=== PATIENT | male | born 1970 | race African-American/Black ===

== ENCOUNTER 2023-06-23 13:09 | Emergency (ER) | payer MEDICAID, OTHER ==
[~2023-06-23] VITALS: Ht 177.8 cm; Wt 59.0 kg
[2023-06-23] MEDS ORDERED: ATROPINE SULF 1 MG/10ml SYR IV ONE (13:10)
[2023-06-23] MEDS ORDERED: AMIODARONE HCL (50 MG/ ML) 3 ML VIAL IV ONE (13:10)
[2023-06-23] MEDS ORDERED: CALCIUM CHLOR(10%) 100MG/ML 10ML SYRINGE IV ONE (13:10)
[2023-06-23] MEDS ORDERED: DEXTROSE (50%) 50ML SYRG IV ONE (13:10)
[2023-06-23] MEDS ORDERED: EPINEPHrine HCL 1 MG/10 ML SYRG IV ONE (13:10)
[2023-06-23] MEDS ORDERED: SODIUM CHLORIDE 0.9% 1,000 ML IV ONE ×4 (13:30→14:15)
[2023-06-23] MEDS ORDERED: NOREPINEPHRINE 8 MG/250ML KIT 250 ML IV ONE (13:58)
[2023-06-23] MEDS ORDERED: MIDAZOLAM DRIP 50 mg/50mL 50 ML IV ONE (13:58)
[2023-06-23] MEDS ORDERED: SODIUM CHLORIDE 0.9% 1,000 ML IV SCH (14:00)
[2023-06-23] MEDS ORDERED: DEXTROSE 10% 1,000 ML IV SCH (14:00)
[2023-06-23] MEDS ORDERED: SODIUM BICARBONATE 50ML VIAL 50 ML in SOD CHL 0.45% 1,000 ML IV ONE (14:00)
[2023-06-23] MEDS ORDERED: MIDAZOLAM DRIP 50 mg/50mL 50 ML IV SCH (14:00)
[2023-06-23] MEDS ORDERED: EPINEPHrine HCL 250 ML IV SCH (14:00)
[2023-06-23] MEDS ORDERED: DEXTROSE 50% SYRINGE 0 ML IV ONE (14:03)
[2023-06-23 14:15] VITALS: BP 80/40; TEMP 98.1; O2SAT 98
[2023-06-23] MEDS ORDERED: NOREPINEPHRINE 8 MG/250ML KIT 250 ML IV SCH (14:15)
[2023-06-23] MEDS ORDERED: cefTRIAXone 1GM/50ML D5W 50 ML IV ONE (14:15)
[2023-06-23] MEDS ORDERED: CLINDAMYCIN 600MG IV 50 ML IV ONE (14:15)
[2023-06-23 14:18] VITALS: PULSE 53; RESP 23
[2023-06-23] MEDS ORDERED: DEXTROSE 50% SYRINGE 100 ML IV ONE (14:39)
[2023-06-23 14:48] LABS: Urine Bacteria FEW /hpf (None Seen); Urine Blood Negative /uL (Negative); Urine Clarity HAZY (Clear); Urine Color Yellow (Yellow); Urine Hyaline Cast MOD /lpf (0 - 2); Urine Protein, UAD 1+ (Negative); Urine Sperm PRESENT /hpf (None Seen); Urine WBC 4 /hpf (0 - 3); Urine pH 5.5 (5.0-8.0)
[2023-06-23 14:49] LABS: Alanine Aminotransferase 92 U/L (7-40); Albumin 2.2 g/dL (3.2-4.8); Alkaline Phosphatase 114 U/L (46-116); Anion Gap 15 (5-15); Aspartate Aminotransferase 156 U/L (13-40); BUN/Creatinine Ratio 19.6 (10.0-20.0); Bilirubin, Total 0.8 mg/dL (0.2-1.0); Blood Urea Nitrogen 36 mg/dL (9-23); Calcium 7.9 mg/dL (8.5-10.1); Carbon Dioxide 16 mmol/L (20-30); Chloride 99 mmol/L (98-107); Glucose 101 mg/dL (74-106); Sodium 130 mmol/L (136-145)
[2023-06-23 14:55] LABS: Amphetamine Screen, Urine Pos (NEGATIVE)
[2023-06-23 14:56] LABS: Barbiturate Scree,Urine Neg (NEGATIVE)
[2023-06-23 14:57] LABS: Benzodiazephine Screen, Urine Neg (NEGATIVE); Cannabinoid Screen, Urine Pos (NEGATIVE); Cocaine Screen, Urine Neg (NEGATIVE); Opiate Scree,Urine Pos (NEGATIVE); Phencyclidine Screen, Urine Neg (NEGATIVE)
[2023-06-23 15:08] LABS: Potassium 7.4 mmol/L (3.5-5.1)
[2023-06-23] MEDS ORDERED: EPINEPHrine HCL 1 MG/10 ML SYRG ONE (18:00)
[2023-06-23] MEDS ORDERED: DEXTROSE 10% 1,000 ML IV ONE (18:00)
[2023-06-23] MEDS ORDERED: SODIUM BICARBONATE 8.4 % INJ 50ML VIAL IV ONE (18:00)
[2023-06-23] MEDS ORDERED: DEXTROSE 50% SYRINGE 50 ML IV ONE (18:02)
[2023-06-23] MEDS ORDERED: EPINEPHrine HCL 250 ML IV ONE (18:02)
== END 2023-06-23 14:50 ==
LOC: ER 13:09 → EDBD 13:09 → ER 14:50
DX: I46.9 Cardiac arrest, cause unspecified (principal); R06.89 Other abnormalities of breathing; F11.23 Opioid dependence with withdrawal
CPT/HCPCS: 31500; 36415; 36556; 36600; 71045; 80053; 80307; 81001; 82805; 84484; 92950; 93005; 96360; 99291; J0171; J0282; J2250; J7030; J7042